=== PATIENT | female | born 1950 | race Caucasian/White ===

== ENCOUNTER 2024-01-19 18:56 | Inpatient (IN) | payer MEDICARE, OTHER ==
[~2024-01-19] VITALS: Ht 170.2 cm; Wt 79.8 kg
[2024-01-19] MEDS: ALBUTEROL FS 2.5 MG/0.5 ML VIAL.NEB NEB ONE (19:12)
[2024-01-19] MEDS: IPRATROPIUM NEB FS 0.5 MG/2.5 ML AMPUL.NEB NEB ONE (19:12)
[2024-01-19] MEDS ORDERED: ALBUTEROL FS 2.5 MG/0.5 ML VIAL.NEB ONE (19:14)
[2024-01-19] MEDS ORDERED: IPRATROPIUM NEB FS 0.5 MG/2.5 ML AMPUL.NEB ONE ×2 (19:14→23:42)
[2024-01-19 19:18] VITALS: O2SAT 91
[2024-01-19 19:26] LABS: BASOPHILS % (AUTO) 0.5 % (0.0-2.0); HEMATOCRIT 37 % (33-45); HEMOGLOBIN 12.6 g/dL (11.5-14.8); LYMPHOCYTES # (AUTO) 1.6 K/uL (0.8-4.8); LYMPHOCYTES % (AUTO) 20.1 % (20.0-44.0); MEAN CORPUSCULAR HEMOGLOBIN 30 PG (26.0-33.0); MEAN CORPUSCULAR HGB CONC 34 g/dl (31.0-36.0); MEAN CORPUSCULAR VOLUME 88 fL (82-100); MONOCYTES # (AUTO) 0.6 K/uL (0.1-1.30); MONOCYTES % (AUTO) 6.9 % (2.0-12.0); NEUTROPHILS # (AUTO) 5.8 K/uL (1.8-8.9); NEUTROPHILS % (AUTO) 72.5 % (43.0-81.0); PLATELET COUNT (AUTO) 188 K/uL (150-450); RED BLOOD CELL COUNT(AUTO) 4.23 MIL/uL (4.0-5.2); RED CELL DISTRIBUTION WIDTH 14.5 % (11.5-15.0); WHITE BLOOD COUNT (AUTO) 8.1 K/uL (4.3-11.0)
[2024-01-19 19:36] LABS: CALCIUM, SERUM 8.9 mg/dL (8.5-10.1); CARBON DIOXIDE 27 mmol/L (21-32); CHLORIDE 94 mmol/L (98-107); GLUCOSE 136 mg/dL (74-106); POTASSIUM 3.7 mmol/L (3.5-5.1); SODIUM SERUM 129 mmol/L (136-145); UREA NITROGEN, BLOOD 15 mg/dL (7-18)
[2024-01-19 19:54] LABS: ALANINE AMINOTRANSFERASE 25 U/L (12-78); ALBUMIN 3.3 g/dL (3.4-5.0); ALKALINE PHOSPHATASE 61 U/L (46-116); ASPARTATE AMINOTRANSFERASE 29 U/L (15-37); BILIRUBIN,DIRECT 0.1 mg/dL (0.0-0.2); BILIRUBIN,TOTAL 0.5 mg/dL (0.2-1.0); TOTAL PROTEIN, SERUM 7.9 g/dL (6.4-8.2)
[2024-01-19 19:55] LABS: LACTIC ACID 2.1 mmol/L (0.4-2.0)
[2024-01-19 20:18] VITALS: O2SAT 92
[2024-01-19] MEDS: FUROSEMIDE 40 MG/4 ML VIAL IV STA (22:12)
[2024-01-19] MEDS ORDERED: PIPERACI/TAZO 3.375GM/D5W 50ML PB IV ONE (22:15)
[2024-01-19] MEDS: PIPERACILLIN /TAZOBACTAM 3.375 G in IV D5W 50 ML IV SCH (22:22)
[2024-01-19] MEDS ORDERED: VANCOMYCIN 1 GM in IV D5W 250 ML IV SCH (22:30)
[2024-01-19] MEDS ORDERED: [UNRECOGNIZED DRUG - REMARK] IV PRN (22:30)
[2024-01-19] MEDS ORDERED: VANCOMYCIN 1 GM /D5W 250 ML PB IV ONE (22:48)
[2024-01-19] MEDS ORDERED: ONDANSETRON HCL/PF 4 MG/2 ML VIAL IVP PRN (23:00)
[2024-01-19] MEDS: ZOSYN IVPB 3.375 G in IV D5W 50ml IV ONE (23:00)
[2024-01-19] MEDS: VANCOMYCIN 1.5 GM in IV D5W 500 ML IV ONE (23:00)
[2024-01-19] MEDS ORDERED: VANCOMYCIN 500 MG VIAL ONE (23:07)
[2024-01-19] MEDS: IPRATROPIUM NEB FS 0.5 MG/2.5 ML AMPUL.NEB NEB SCH (23:39)
[2024-01-19] MEDS: ALBUTEROL HALF STRENGTH 1.25 MG/3 ML VIAL.NEB NEB SCH (23:39)
[2024-01-19] MEDS ORDERED: ALBUTEROL FS 2.5 MG/3 ML VIAL.NEB ONE (23:42)
[2024-01-20] VITALS (48 sets, daily range): BP systolic 111–153; BP diastolic 46–125; TEMP 98.4–99.4; O2SAT 88–100
[2024-01-20 01:31] LABS: ABG BASE EXCESS -0.6 mmol/L; ABG OXYGEN SATURATION 96.4 % (92.0-98.5); ABG PCO2 33.8 mmHg (35.0-45.0); ABG PH 7.446 (7.350-7.450); ABG PO2 90.2 mmHg (75.0-100.0); ABG TOTAL HEMOGLOBIN 13.6 G/dL (12.0-16.0); COHb 0.3 % (0.5-1.5); MetHb 0.1 % (0.0-1.5); SITE, ABG Right Radial; VENT MODE, BG bipap 16/8
[2024-01-20] MEDS: ENOXAPARIN SODIUM 40 MG/0.4 ML DISP.SYRIN SQ SCH (01:51)
[2024-01-20] MEDS: ACETAMINOPHEN 325 MG TABLET PO PRN (05:21)
[2024-01-20] MEDS: IV NS 0.9% 250 ML IV PRN (05:36)
[2024-01-20] MEDS: methylPREDNISolone SOD SUCC 40 MG/ML VIAL IV SCH (05:36)
[2024-01-20] MEDS: PIPERACI/TAZO 3.375GM/D5W 50ML PB IV ONE (05:38)
[2024-01-20] MEDS: ZOSYN IVPB 3.375 G in IV D5W 50ml IV ONE (05:43)
[2024-01-20 05:51] LABS: BASOPHILS % (AUTO) 0.3 % (0.0-2.0); HEMATOCRIT 33 % (33-45); HEMOGLOBIN 11.7 g/dL (11.5-14.8); LYMPHOCYTES # (AUTO) 0.8 K/uL (0.8-4.8); LYMPHOCYTES % (AUTO) 12.2 % (20.0-44.0); MEAN CORPUSCULAR HEMOGLOBIN 31 PG (26.0-33.0); MEAN CORPUSCULAR HGB CONC 35 g/dl (31.0-36.0); MEAN CORPUSCULAR VOLUME 87 fL (82-100); MONOCYTES # (AUTO) 0.5 K/uL (0.1-1.30); MONOCYTES % (AUTO) 7.7 % (2.0-12.0); NEUTROPHILS # (AUTO) 5.4 K/uL (1.8-8.9); NEUTROPHILS % (AUTO) 79.8 % (43.0-81.0); PLATELET COUNT (AUTO) 155 K/uL (150-450); RED BLOOD CELL COUNT(AUTO) 3.82 MIL/uL (4.0-5.2); RED CELL DISTRIBUTION WIDTH 14.5 % (11.5-15.0); WHITE BLOOD COUNT (AUTO) 6.7 K/uL (4.3-11.0)
[2024-01-20 06:17] LABS: CALCIUM, SERUM 8.2 mg/dL (8.5-10.1); MAGNESIUM 1.9 mg/dL (1.8-2.4); PHOSPHORUS 3.8 mg/dL (2.5-4.9); POTASSIUM 3.3 mmol/L (3.5-5.1)
[2024-01-20] MEDS: PIPERACILLIN /TAZOBACTAM 3.375 G in IV D5W 100 ML IV SCH (09:46)
[2024-01-20] MEDS: POTASSIUM CHLORIDE 20 MEQ TAB.PRT.SR PO SCH (09:48)
[2024-01-20] MEDS ORDERED: ATOR20TA PO (11:01)
[2024-01-20] MEDS ORDERED: AMLO-213 PO (11:01)
[2024-01-20] MEDS ORDERED: DIVA-78 PO (11:01)
[2024-01-20] MEDS ORDERED: GLUC1KIT IJ (11:01)
[2024-01-20] MEDS ORDERED: CYCL5TAB PO (11:01)
[2024-01-20] MEDS ORDERED: SENN8.6T19 PO (11:01)
[2024-01-20] MEDS ORDERED: DOCU100C36 PO (11:01)
[2024-01-20] MEDS ORDERED: FLUO10CA26 PO (11:01)
[2024-01-20] MEDS ORDERED: ISOS10TA2 PO (11:01)
[2024-01-20] MEDS ORDERED: FURO-145 PO (11:01)
[2024-01-20] MEDS ORDERED: QUET200T PO (11:01)
[2024-01-20] MEDS ORDERED: METO50TA16 PO (11:01)
[2024-01-20] MEDS ORDERED: DIVA250T PO (11:01)
[2024-01-20] MEDS ORDERED: BISA10SU11 RC (11:01)
[2024-01-20] MEDS ORDERED: ACET325T53 PO (11:01)
[2024-01-20] MEDS ORDERED: OMEG1000 PO (11:01)
[2024-01-20] MEDS ORDERED: MAG30ORA PO (11:01)
[2024-01-20] MEDS ORDERED: MAGN400O6 PO (11:01)
[2024-01-20] MEDS ORDERED: POLY15DR31 EACHEYE (11:01)
[2024-01-20] MEDS ORDERED: PANT40TA2 PO (11:01)
[2024-01-20] MEDS ORDERED: NA P133E RC (11:01)
[2024-01-20] MEDS: VANCOMYCIN 750 MG in IV D5W 250 ML IV SCH (11:36)
[2024-01-20] MEDS: OLANZAPINE 10 MG VIAL IM ONE (23:04)
[2024-01-21] VITALS (37 sets, daily range): BP systolic 80–162; BP diastolic 39–94; TEMP 97.6–98.4; O2SAT 85–100
[2024-01-21 05:11] LABS: BASOPHILS % (AUTO) 0.2 % (0.0-2.0); HEMATOCRIT 34 % (33-45); HEMOGLOBIN 11.8 g/dL (11.5-14.8); LYMPHOCYTES # (AUTO) 0.4 K/uL (0.8-4.8); LYMPHOCYTES % (AUTO) 8.4 % (20.0-44.0); MEAN CORPUSCULAR HEMOGLOBIN 31 PG (26.0-33.0); MEAN CORPUSCULAR HGB CONC 35 g/dl (31.0-36.0); MEAN CORPUSCULAR VOLUME 88 fL (82-100); MONOCYTES # (AUTO) 0.2 K/uL (0.1-1.30); MONOCYTES % (AUTO) 3.1 % (2.0-12.0); NEUTROPHILS # (AUTO) 4.3 K/uL (1.8-8.9); NEUTROPHILS % (AUTO) 88.3 % (43.0-81.0); PLATELET COUNT (AUTO) 184 K/uL (150-450); RED BLOOD CELL COUNT(AUTO) 3.84 MIL/uL (4.0-5.2); RED CELL DISTRIBUTION WIDTH 14.2 % (11.5-15.0); WHITE BLOOD COUNT (AUTO) 4.9 K/uL (4.3-11.0)
[2024-01-21 05:32] LABS: CALCIUM, SERUM 8.8 mg/dL (8.5-10.1); CREATININE 0.9 mg/dL (0.6-1.3); MAGNESIUM 2.2 mg/dL (1.8-2.4); PHOSPHORUS 3.4 mg/dL (2.5-4.9); POTASSIUM 3.9 mmol/L (3.5-5.1)
[2024-01-21] MEDS ORDERED: DEXTROSE 50%-WATER 50 ML DISP.SYRIN IV PRN (10:30)
[2024-01-21] MEDS: BLOOD SUGAR DIAGNOSTIC 1 EACH STRIP VI SCH (11:53)
[2024-01-21] MEDS: METFORMIN 500 MG TABLET PO SCH (12:02)
[2024-01-21] MEDS: INSULIN REGULAR, HUMAN 100 UNIT/ML 3 ML VIAL SQ PRN (12:13)
[2024-01-21] MEDS: OLANZAPINE ZYDIS 5 MG TAB.RAPDIS PO PRN (14:11)
[2024-01-21] MEDS: ISOSORBIDE DINITRATE (10MG) 10 MG TABLET PO SCH (14:12)
[2024-01-21] MEDS: DOCUSATE SODIUM 100 MG CAPSULE PO SCH (16:13)
[2024-01-21] MEDS: QUETIAPINE FUMARATE 100 MG TABLET PO SCH (16:14)
[2024-01-21] MEDS: METOPROLOL TARTRATE 50 MG TABLET PO SCH (16:14)
[2024-01-21] MEDS: DIVALPROEX SODIUM 125 MG TABLET.DR PO SCH (16:14)
[2024-01-21] MEDS: ATORVASTATIN 10 MG TABLET PO SCH (21:13)
[2024-01-22] VITALS (29 sets, daily range): BP systolic 106–147; BP diastolic 57–90; TEMP 97.4–98.7; O2SAT 88–99
[2024-01-22 04:42] LABS: CALCIUM, SERUM 9.2 mg/dL (8.5-10.1); CARBON DIOXIDE 29 mmol/L (21-32); CHLORIDE 98 mmol/L (98-107); GLUCOSE 232 mg/dL (74-106); POTASSIUM 4.4 mmol/L (3.5-5.1); SODIUM SERUM 136 mmol/L (136-145); UREA NITROGEN, BLOOD 15 mg/dL (7-18)
[2024-01-22] MEDS ORDERED: Fluoxetine 10 mg capsule PO SCH (09:00)
[2024-01-22] MEDS: DIVALPROEX SODIUM 250 MG TABLET.DR PO SCH (09:15)
[2024-01-22] MEDS: AMLODIPINE BESYLATE 10 MG TABLET PO SCH (09:16)
[2024-01-22] MEDS: VANCOMYCIN 1 GM in IV D5W 250ml IV SCH (22:27)
[2024-01-23] VITALS (15 sets, daily range): BP systolic 128–140; BP diastolic 68–83; TEMP 97.3–97.7; O2SAT 87–100
[2024-01-23 07:03] LABS: CALCIUM, SERUM 9.4 mg/dL (8.5-10.1); CREATININE 0.9 mg/dL (0.6-1.3); POTASSIUM 3.9 mmol/L (3.5-5.1)
[2024-01-23] MEDS: DIVALPROEX SODIUM 125 MG TABLET.DR PO SCH (08:39)
[2024-01-23] MEDS: QUETIAPINE FUMARATE 100 MG TABLET PO SCH (08:39)
[2024-01-23] MEDS: OLANZAPINE ZYDIS 5 MG TAB.RAPDIS PO PRN (12:53)
[2024-01-23] MEDS: OLANZAPINE ZYDIS 5 MG TAB.RAPDIS PO SCH (16:21)
[2024-01-24] VITALS (16 sets, daily range): BP systolic 124–152; BP diastolic 60–81; TEMP 97.5–98.6; O2SAT 90–98
[2024-01-24 07:25] LABS: CALCIUM, SERUM 9.3 mg/dL (8.5-10.1); CREATININE 0.9 mg/dL (0.6-1.3); POTASSIUM 4.2 mmol/L (3.5-5.1)
[2024-01-24] MEDS: VALSARTAN 80 MG TABLET PO SCH (11:56)
[2024-01-24] MEDS: VANCOMYCIN 750 MG in IV D5W 250 ML IV SCH (15:19)
[2024-01-24] MEDS: OLANZAPINE ZYDIS 5 MG TAB.RAPDIS PO SCH (17:22)
[2024-01-24] MEDS: *INSULIN REGULAR(HUMULIN R)HUM 100 UNIT/ML VIAL SQ PRN (21:13)
[2024-01-25] VITALS (14 sets, daily range): BP systolic 130–146; BP diastolic 63–78; TEMP 97.6–97.7; O2SAT 92–98
[2024-01-25 07:08] LABS: CALCIUM, SERUM 8.7 mg/dL (8.5-10.1); CREATININE 0.9 mg/dL (0.6-1.3); POTASSIUM 4.1 mmol/L (3.5-5.1)
[2024-01-25 09:39] LABS: MAGNESIUM 2.2 mg/dL (1.8-2.4); PHOSPHORUS 3.6 mg/dL (2.5-4.9)
[2024-01-25 10:26] LABS: THYROID STIMULATING HORMONE 0.507 uIU/mL (0.358-3.74); URIC ACID 3.8 mg/dL (2.6-7.2)
[2024-01-25 12:30] LABS: CREATININE 1.1 mg/dL (0.6-1.3); POTASSIUM 3.9 mmol/L (3.5-5.1)
[2024-01-25 16:30] LABS: URINE SODIUM, RANDOM 22 mmol/l (40-220)
[2024-01-26] VITALS (15 sets, daily range): BP systolic 122–149; BP diastolic 63–77; TEMP 97.7–98.2; O2SAT 93–98
[2024-01-26 06:52] LABS: CALCIUM, SERUM 8.6 mg/dL (8.5-10.1); CARBON DIOXIDE 25 mmol/L (21-32); CHLORIDE 98 mmol/L (98-107); CREATININE 0.8 mg/dL (0.6-1.3); GLUCOSE 186 mg/dL (74-106); POTASSIUM 3.9 mmol/L (3.5-5.1); SODIUM SERUM 131 mmol/L (136-145); UREA NITROGEN, BLOOD 17 mg/dL (7-18)
[2024-01-26] MEDS: SODIUM CHLORIDE 1000 MG TABLET PO SCH (09:03)
[2024-01-26] MEDS: methylPREDNISolone SOD SUCC 40 MG/ML VIAL IV SCH (10:27)
[2024-01-26] MEDS: risperiDONE 1 MG TABLET PO SCH (12:47)
[2024-01-26 16:06] LABS: OSMOLALITY,URINE 389 mOS/kg (340-1090)
[2024-01-26] MEDS: OLANZAPINE ZYDIS 5 MG TAB.RAPDIS PO SCH (17:25)
[2024-01-27 04:00] VITALS: BP 134/72; TEMP 97.5; O2SAT 93
[2024-01-27 07:13] VITALS: O2SAT 94
[2024-01-27 07:24] VITALS: O2SAT 98
[2024-01-27 08:14] LABS: CALCIUM, SERUM 9.2 mg/dL (8.5-10.1); CREATININE 0.8 mg/dL (0.6-1.3); POTASSIUM 4.2 mmol/L (3.5-5.1)
[2024-01-27 09:52] VITALS: O2SAT 92
[2024-01-27] MEDS ORDERED: DIVA125T2 PO (10:01)
[2024-01-27] MEDS ORDERED: METF-440 PO (10:01)
[2024-01-27] MEDS ORDERED: AMOX-430 PO (10:01)
[2024-01-27] MEDS ORDERED: ALBU1.25 NEB (10:01)
[2024-01-27] MEDS ORDERED: OLAN5TAB6 PO ×2 (10:01)
[2024-01-27] MEDS ORDERED: SODI100037 PO (10:01)
[2024-01-27] MEDS ORDERED: IPRA0.2S9 NEB (10:01)
[2024-01-27] MEDS ORDERED: VALS80TA31 PO (10:01)
[2024-01-27] MEDS ORDERED: PRED20TA PO (10:01)
[2024-01-27] MEDS ORDERED: INSU100V28 SQ (10:01)
[2024-01-27] MEDS ORDERED: ENOX40DI SQ (10:01)
[2024-01-27] MEDS ORDERED: RISP1TAB7 PO (10:01)
[2024-01-27] MEDS ORDERED: *INS REG SQ (10:01)
[2024-01-27 12:25] VITALS: BP 119/61
== END 2024-01-27 18:08 | DRG 871 ==
LOC: ER 19:00 → TELE1 21:43 → ICU 23:45 → TELE1 01-22 17:55 → MEDSG1 01-25 08:36
PROVIDERS: ADMIT Nurse Practitioner Acute Care; ATTEND Internal Medicine
PROC: 5A09357 Assistance with Respiratory Ventilation, Less than 24 Consecutive Hours, Continuous Positive Airway Pressure (ICD-10-PCS; principal; 2024-01-19)
PROC: 05HB33Z Insertion of Infusion Device into Right Basilic Vein, Percutaneous Approach (ICD-10-PCS; 2024-01-25)
PROC: B54MZZA Ultrasonography of Right Upper Extremity Veins, Guidance (ICD-10-PCS; 2024-01-25)
DX: A41.9 Sepsis, unspecified organism (principal); I50.33 Acute on chronic diastolic (congestive) heart failure; J15.69 Pneumonia due to other Gram-negative bacteria; J96.01 Acute respiratory failure with hypoxia; E44.1 Mild protein-calorie malnutrition; I13.0 Hypertensive heart and chronic kidney disease with heart failure and stage 1 through stage 4 chronic kidney disease, or unspecified chronic kidney disease; E22.2 Syndrome of inappropriate secretion of antidiuretic hormone; F05 Delirium due to known physiological condition; N18.9 Chronic kidney disease, unspecified; E78.5 Hyperlipidemia, unspecified; E88.09 Other disorders of plasma-protein metabolism, not elsewhere classified; K21.9 Gastro-esophageal reflux disease without esophagitis; Z85.6 Personal history of leukemia; E11.40 Type 2 diabetes mellitus with diabetic neuropathy, unspecified; Z87.891 Personal history of nicotine dependence; E86.1 Hypovolemia; F29 Unspecified psychosis not due to a substance or known physiological condition; F25.0 Schizoaffective disorder, bipolar type; E11.22 Type 2 diabetes mellitus with diabetic chronic kidney disease; G40.909 Epilepsy, unspecified, not intractable, without status epilepticus
CPT/HCPCS: 36415; 36600; 71045-TC; 80048-TC; 80061-TC; 80076-TC; 80164-TC; 80202-TC; 82533; 82803-TC; 82962-TC; 83605-TC; 83735-TC; 83880; 83935-TC; 84100-TC; 84300-TC; 84443-TC; 84484-TC; 84550-TC; 85025-TC; 85378-TC; 87040-TC; 87081-TC; 93307-TC; 93970-TC; 94760-TC; 94799-TC; 97112-TC; 97116-TC; 97530-TC; 99082-TC; A4223; G0378; J1650; J1815; J1940; J2543; J2919; J3370; J3371; J3490; J7050; J7060

== ENCOUNTER 2024-01-27 16:26 | Inpatient (IN) | payer MEDICARE, OTHER ==
[~2024-01-27] VITALS: Ht 167.6 cm; Wt 85.3 kg
[~2024-01-27 16:26] MED LIST: *INS REG SQ; ACET325T53 PO; ALBU1.25 NEB; AMLO-213 PO; AMOX-430 PO; ATOR20TA PO; BISA10SU11 RC; CYCL5TAB PO; DIVA-78 PO; DIVA125T2 PO; DIVA250T PO; DOCU100C36 PO; ENOX40DI SQ; FLUO10CA26 PO; FURO-145 PO; GLUC1KIT IJ; INSU100V28 SQ; IPRA0.2S9 NEB; ISOS10TA2 PO; MAG30ORA PO; MAGN400O6 PO; METF-440 PO; METO50TA16 PO; NA P133E RC; OLAN5TAB6 PO; OMEG1000 PO; PANT40TA2 PO; POLY15DR31 EACHEYE; PRED20TA PO; QUET200T PO; RISP1TAB7 PO; SENN8.6T19 PO; SODI100037 PO; VALS80TA31 PO
[2024-01-27] MEDS: OLANZAPINE 10 MG VIAL IM ONE (17:12)
[2024-01-27] MEDS ORDERED: MAG HYDROX/AL HYDROX/SIMETH 30 ML UDC PO PRN (17:30)
[2024-01-27] MEDS ORDERED: ZOLPIDEM TARTRATE 5 MG TABLET PO PRN (17:30)
[2024-01-27] MEDS ORDERED: QUETIAPINE FUMARATE 25 MG TABLET PO PRN (17:30)
[2024-01-27] MEDS ORDERED: MAGNESIUM HYDROXIDE 30 ML UDC PO PRN (17:30)
[2024-01-27] MEDS: BLOOD SUGAR DIAGNOSTIC 1 EACH STRIP IN ONE (17:39)
[2024-01-27] MEDS ORDERED: RISPERIDONE 0.25 MG TAB.RAPDIS PO PRN (18:30)
[2024-01-27] MEDS: NICOTINE PATCH (21MG) 21 MG PATCH.TD24 TD SCH (18:53)
[2024-01-27 20:00] VITALS: BP 128/64; TEMP 98.1; O2SAT 94
[2024-01-27] MEDS: DIVALPROEX SODIUM 500 MG TABLET.DR PO SCH (21:25)
[2024-01-27] MEDS: risperiDONE 1 MG TABLET PO SCH (21:25)
[2024-01-27] MEDS: ACETAMINOPHEN 325 MG TABLET PO PRN (22:15)
[2024-01-27] MEDS ORDERED: NA PHOS,M-B/NA PHOS,DI-BA 1 EA ENEMA RC PRN (22:30)
[2024-01-27] MEDS ORDERED: POLYVINYL ALCOHOL 15 ML BOTTLE EACHEYE PRN (22:30)
[2024-01-27] MEDS: ATORVASTATIN 10 MG TABLET PO SCH (22:52)
[2024-01-27] MEDS: ENOXAPARIN SODIUM 40 MG/0.4 ML DISP.SYRIN SQ SCH (22:54)
[2024-01-27] MEDS ORDERED: AMOX/CLAVULANATE 875 MG TABLET ONE (23:12)
[2024-01-27] MEDS: AMOX/CLAVULANATE 875 MG TABLET PO SCH (23:15)
[2024-01-28] MEDS ORDERED: GUAIFENESIN 300 MG/15 ML UDC PO PRN (06:30)
[2024-01-28] MEDS: GUAIFENESIN/D-METHORPHAN HB 5 ML UDC PO PRN (06:50)
[2024-01-28] MEDS ORDERED: GUAIFENESIN/D-METHORPHAN HB 5 ML UDC PO PRN (07:00)
[2024-01-28 07:42] LABS: ALBUMIN 2.6 g/dL (3.4-5.0); BILIRUBIN,TOTAL 0.4 mg/dL (0.2-1.0); CALCIUM, SERUM 9.5 mg/dL (8.5-10.1); CREATININE 0.7 mg/dL (0.6-1.3); POTASSIUM 4.7 mmol/L (3.5-5.1); TOTAL PROTEIN, SERUM 6.7 g/dL (6.4-8.2)
[2024-01-28 07:44] LABS: CHOLESTEROL 166 mg/dL (<200); HDL CHOLESTEROL 48 mg/dL (40-60); LDL 82 mg/dL (0-99); TRIGLYCERIDES 231 mg/dL (30-150)
[2024-01-28 08:00] VITALS: BP 138/74; TEMP 98.1; O2SAT 97
[2024-01-28] MEDS: METOPROLOL TARTRATE 50 MG TABLET PO SCH (09:08)
[2024-01-28] MEDS: PANTOPRAZOLE 40 MG TABLET.DR PO SCH (09:08)
[2024-01-28] MEDS: ISOSORBIDE DINITRATE (10MG) 10 MG TABLET PO SCH (09:09)
[2024-01-28] MEDS: DOCUSATE SODIUM 100 MG CAPSULE PO SCH (09:09)
[2024-01-28] MEDS: METFORMIN 500 MG TABLET PO SCH (09:09)
[2024-01-28] MEDS: AMLODIPINE BESYLATE 10 MG TABLET PO SCH (09:09)
[2024-01-28] MEDS: SODIUM CHLORIDE 1000 MG TABLET PO SCH (09:09)
[2024-01-28] MEDS: predniSONE 20 MG TABLET PO SCH (09:09)
[2024-01-28] MEDS: FUROSEMIDE 20 MG TABLET PO SCH (09:10)
[2024-01-28] MEDS: VALSARTAN 80 MG TABLET PO SCH (09:10)
[2024-01-28 16:00] VITALS: BP 128/60; TEMP 98.6; O2SAT 96
[2024-01-28 17:31] LABS: CREATININE 1.1 mg/dL (0.6-1.3)
[2024-01-28] MEDS: SENNOSIDES 8.6 MG TABLET PO SCH (21:23)
[2024-01-29 07:22] LABS: CALCIUM, SERUM 8.8 mg/dL (8.5-10.1); CREATININE 0.7 mg/dL (0.6-1.3); POTASSIUM 4.5 mmol/L (3.5-5.1)
[2024-01-29 08:00] VITALS: BP 142/70; TEMP 97.6; O2SAT 97
[2024-01-29] MEDS: CYCLOBENZAPRINE 10 MG TABLET PO PRN (08:01)
[2024-01-29 16:00] VITALS: BP 122/60; TEMP 97.9; O2SAT 94
[2024-01-29 20:00] VITALS: BP 98/78; TEMP 98.1; O2SAT 98
[2024-01-29] MEDS: risperiDONE 1 MG TABLET PO SCH (21:23)
[2024-01-30 07:14] LABS: CALCIUM, SERUM 9.1 mg/dL (8.5-10.1); CREATININE 0.8 mg/dL (0.6-1.3); POTASSIUM 4.6 mmol/L (3.5-5.1)
[2024-01-30 08:00] VITALS: BP 110/64; TEMP 97.7; O2SAT 95
[2024-01-30 16:00] VITALS: BP 137/68; TEMP 98.6; O2SAT 95
[2024-01-30 20:00] VITALS: BP 100/62; TEMP 97.6; O2SAT 96
[2024-01-31 08:00] VITALS: BP 117/60; TEMP 97.5; O2SAT 97
[2024-01-31 16:00] VITALS: BP 145/60; TEMP 97.7; O2SAT 96
[2024-01-31 20:00] VITALS: BP 112/74; TEMP 98.2; O2SAT 98
[2024-02-01 07:17] LABS: CALCIUM, SERUM 9.2 mg/dL (8.5-10.1); CREATININE 0.8 mg/dL (0.6-1.3); POTASSIUM 4.4 mmol/L (3.5-5.1)
[2024-02-01 08:00] VITALS: BP 110/75; TEMP 97.9; O2SAT 94
[2024-02-01 16:00] VITALS: BP 113/63; TEMP 97.9; O2SAT 95
[2024-02-01 20:03] VITALS: BP 118/78; TEMP 97.5; O2SAT 97
[2024-02-01] MEDS: risperiDONE 1 MG TABLET PO SCH (21:40)
[2024-02-02 08:00] VITALS: BP 122/74; TEMP 98.7; O2SAT 98
[2024-02-02] MEDS: risperiDONE 1 MG TABLET PO SCH (08:54)
[2024-02-02 16:00] VITALS: BP 99/53; TEMP 97.9; O2SAT 97
[2024-02-02 20:37] VITALS: BP 98/60; TEMP 97.5; O2SAT 96
[2024-02-03 07:14] LABS: CALCIUM, SERUM 9.6 mg/dL (8.5-10.1); CARBON DIOXIDE 23 mmol/L (21-32); CHLORIDE 96 mmol/L (98-107); CREATININE 0.9 mg/dL (0.6-1.3); GLUCOSE 169 mg/dL (74-106); POTASSIUM 4.3 mmol/L (3.5-5.1); SODIUM SERUM 133 mmol/L (136-145); UREA NITROGEN, BLOOD 20 mg/dL (7-18)
[2024-02-03 08:00] VITALS: BP 134/68; TEMP 97.7; O2SAT 94
[2024-02-03] MEDS: risperiDONE-M 0.5 MG TAB.RAPDIS PO PRN (11:33)
[2024-02-03 16:00] VITALS: BP 110/64; TEMP 98.1; O2SAT 96
[2024-02-03 20:25] VITALS: BP 105/61; TEMP 98; O2SAT 96
[2024-02-04 08:00] VITALS: BP 124/75; TEMP 98.6; O2SAT 96
[2024-02-04 16:00] VITALS: BP 108/56; TEMP 98.7; O2SAT 93
[2024-02-04 20:00] VITALS: BP 113/71; TEMP 98.4; O2SAT 95
[2024-02-05 08:00] VITALS: BP 141/74; TEMP 97.6; O2SAT 99
[2024-02-05] MEDS: risperiDONE 1 MG TABLET PO SCH (08:52)
[2024-02-05] MEDS: DIVALPROEX SODIUM 250 MG TABLET.DR PO SCH (12:20)
[2024-02-05 14:19] LABS: CALCIUM, SERUM 9.3 mg/dL (8.5-10.1); CREATININE 1.2 mg/dL (0.6-1.3)
[2024-02-05 14:26] LABS: POTASSIUM 4.6 mmol/L (3.5-5.1)
[2024-02-05] MEDS: BLOOD SUGAR DIAGNOSTIC 1 EACH STRIP VI SCH (14:57)
[2024-02-05] MEDS: INSULIN REGULAR, HUMAN 100 UNIT/ML 3 ML VIAL SQ PRN (14:59)
[2024-02-05] MEDS ORDERED: DEXTROSE 50%-WATER 50 ML DISP.SYRIN IV PRN (15:00)
[2024-02-05 16:00] VITALS: BP 140/76; TEMP 98; O2SAT 99
[2024-02-05] MEDS: INSULIN GLARGINE, 100 UNIT/ML CARTRIDGE SQ SCH (17:30)
[2024-02-05 20:00] VITALS: BP 111/65; TEMP 98.4; O2SAT 95
[2024-02-05] MEDS: *INSULIN REGULAR(HUMULIN R)HUM 100 UNIT/ML VIAL SQ PRN (22:34)
[2024-02-06 08:00] VITALS: BP 113/55; TEMP 98; O2SAT 95
[2024-02-06 16:00] VITALS: BP 112/60; TEMP 98; O2SAT 98
[2024-02-06] MEDS: BENZTROPINE MESYLATE (1 MG) 1 MG TABLET PO SCH (18:02)
[2024-02-06 20:00] VITALS: BP 125/61; TEMP 98.1; O2SAT 95
[2024-02-06] MEDS: risperiDONE 1 MG TABLET PO SCH (21:57)
[2024-02-07 08:00] VITALS: BP 136/69; TEMP 97.6; O2SAT 97
[2024-02-07] MEDS: risperiDONE 1 MG TABLET PO SCH (08:37)
[2024-02-07 16:00] VITALS: BP 123/64; TEMP 97.9; O2SAT 97
[2024-02-07] MEDS: METFORMIN 500 MG TABLET PO SCH (17:31)
[2024-02-07] MEDS: AMLODIPINE BESYLATE 10 MG TABLET PO SCH (17:33)
[2024-02-07] MEDS: INSULIN GLARGINE, 100 UNIT/ML CARTRIDGE SQ SCH (17:37)
[2024-02-07 21:11] VITALS: BP 136/67; TEMP 97.8; O2SAT 96
[2024-02-08 07:19] LABS: BASOPHILS % (AUTO) 0.6 % (0.0-2.0); EOSINOPHILS % (AUTO) 0.3 % (0.0-6.0); HEMATOCRIT 34 % (33-45); HEMOGLOBIN 11.7 g/dL (11.5-14.8); LYMPHOCYTES # (AUTO) 4.4 K/uL (0.8-4.8); LYMPHOCYTES % (AUTO) 59.6 % (20.0-44.0); MEAN CORPUSCULAR HEMOGLOBIN 31 PG (26.0-33.0); MEAN CORPUSCULAR HGB CONC 34 g/dl (31.0-36.0); MEAN CORPUSCULAR VOLUME 92 fL (82-100); MONOCYTES # (AUTO) 0.2 K/uL (0.1-1.30); MONOCYTES % (AUTO) 3.2 % (2.0-12.0); NEUTROPHILS # (AUTO) 2.7 K/uL (1.8-8.9); NEUTROPHILS % (AUTO) 36.3 % (43.0-81.0); PLATELET COUNT (AUTO) 113 K/uL (150-450); RED BLOOD CELL COUNT(AUTO) 3.75 MIL/uL (4.0-5.2); RED CELL DISTRIBUTION WIDTH 15.1 % (11.5-15.0); WHITE BLOOD COUNT (AUTO) 7.3 K/uL (4.3-11.0)
[2024-02-08 07:38] LABS: CALCIUM, SERUM 8.9 mg/dL (8.5-10.1); CARBON DIOXIDE 33 mmol/L (21-32); CHLORIDE 103 mmol/L (98-107); CREATININE 0.6 mg/dL (0.6-1.3); GLUCOSE 76 mg/dL (74-106); SODIUM SERUM 138 mmol/L (136-145); UREA NITROGEN, BLOOD 19 mg/dL (7-18)
[2024-02-08 08:08] LABS: LYMPHOCYTES % (MANUAL) 62 % (16-48); NEUTROPHILS % (MANUAL) 35 (42-76)
[2024-02-08 08:09] LABS: ANISOCYTOSIS 1+; MONOCYTES % (MANUAL) 3 % (0-11.0); PLATELET ESTIMATE DECREASED; SMUDGE CELLS 1+
[2024-02-08] MEDS: predniSONE 5 MG TABLET PO SCH (08:54)
[2024-02-08] MEDS ORDERED: predniSONE 20 MG TABLET PO SCH (09:00)
[2024-02-08 09:08] VITALS: BP 133/70; TEMP 97.6; O2SAT 95
[2024-02-08 16:06] VITALS: BP 109/63; TEMP 97.3; O2SAT 95
[2024-02-08 20:00] VITALS: BP 128/92; TEMP 97.6; O2SAT 95
[2024-02-08 20:20] VITALS: BP 128/92; TEMP 97.6; O2SAT 95
[2024-02-09 08:00] VITALS: BP 117/59; TEMP 98.1; O2SAT 96
[2024-02-09 16:00] VITALS: BP 103/67; TEMP 98.4; O2SAT 100
[2024-02-09 20:11] VITALS: BP 115/68; TEMP 98.3; O2SAT 98
[2024-02-10 07:21] LABS: BASOPHILS % (AUTO) 0.2 % (0.0-2.0); EOSINOPHILS % (AUTO) 0.4 % (0.0-6.0); HEMATOCRIT 32 % (33-45); HEMOGLOBIN 10.9 g/dL (11.5-14.8); LYMPHOCYTES # (AUTO) 3.8 K/uL (0.8-4.8); LYMPHOCYTES % (AUTO) 62.5 % (20.0-44.0); MEAN CORPUSCULAR HEMOGLOBIN 31 PG (26.0-33.0); MEAN CORPUSCULAR HGB CONC 34 g/dl (31.0-36.0); MEAN CORPUSCULAR VOLUME 91 fL (82-100); MONOCYTES # (AUTO) 0.2 K/uL (0.1-1.30); MONOCYTES % (AUTO) 3.5 % (2.0-12.0); NEUTROPHILS % (AUTO) 33.4 % (43.0-81.0); PLATELET COUNT (AUTO) 107 K/uL (150-450); RED BLOOD CELL COUNT(AUTO) 3.51 MIL/uL (4.0-5.2); RED CELL DISTRIBUTION WIDTH 14.9 % (11.5-15.0); WHITE BLOOD COUNT (AUTO) 6.1 K/uL (4.3-11.0)
[2024-02-10 08:00] VITALS: BP 125/81; TEMP 98.1; O2SAT 99
[2024-02-10] MEDS: DIVALPROEX SODIUM 500 MG TABLET.DR PO SCH ×2 (14:00→21:23)
[2024-02-10] MEDS: DIVALPROEX SODIUM 250 MG TABLET.DR PO ONE (15:51)
[2024-02-10 16:00] VITALS: BP 106/62; TEMP 98.7; O2SAT 98
[2024-02-10 20:00] VITALS: BP 132/98; TEMP 98; O2SAT 100
[2024-02-10 20:05] VITALS: BP 126/76; TEMP 98.4; O2SAT 98
[2024-02-10] MEDS: risperiDONE 1 MG TABLET PO SCH (21:22)
[2024-02-11 08:00] VITALS: BP 125/70; TEMP 98.1; O2SAT 98
[2024-02-11] MEDS: risperiDONE 1 MG TABLET PO SCH (08:38)
[2024-02-11 12:11] VITALS: BP 128/68
== END 2024-02-11 15:20 | DRG 885 ==
LOC: GPS 16:26
PROVIDERS: ADMIT Psychiatry & Neurology Psychiatry; ATTEND Internal Medicine
DX: F31.2 Bipolar disorder, current episode manic severe with psychotic features (principal); N18.9 Chronic kidney disease, unspecified; A41.9 Sepsis, unspecified organism; E11.65 Type 2 diabetes mellitus with hyperglycemia; I50.33 Acute on chronic diastolic (congestive) heart failure; J15.69 Pneumonia due to other Gram-negative bacteria; J96.01 Acute respiratory failure with hypoxia; I13.0 Hypertensive heart and chronic kidney disease with heart failure and stage 1 through stage 4 chronic kidney disease, or unspecified chronic kidney disease; E87.1 Hypo-osmolality and hyponatremia; E44.1 Mild protein-calorie malnutrition; E11.22 Type 2 diabetes mellitus with diabetic chronic kidney disease; E11.40 Type 2 diabetes mellitus with diabetic neuropathy, unspecified; R26.2 Difficulty in walking, not elsewhere classified; E88.09 Other disorders of plasma-protein metabolism, not elsewhere classified; K21.9 Gastro-esophageal reflux disease without esophagitis; Z87.891 Personal history of nicotine dependence; Z79.84 Long term (current) use of oral hypoglycemic drugs; Z79.4 Long term (current) use of insulin; Z79.01 Long term (current) use of anticoagulants; Z79.899 Other long term (current) drug therapy; E78.5 Hyperlipidemia, unspecified; F10.21 Alcohol dependence, in remission; R56.9 Unspecified convulsions; Y95 Nosocomial condition; E86.1 Hypovolemia
CPT/HCPCS: 36415; 80048-TC; 80053-TC; 80061-TC; 80164-TC; 82565-TC; 82962-TC; 85025-TC; J1650; J1815; J3490; J7512